=== PATIENT | male | born 1975 | race Two or more races ===

== ENCOUNTER 2019-04-07 09:55 | Day surgery (SDC) | payer OTHER ==
[~2019-04-07 09:55] MED LIST: LIDOCAINE 2% INJ-PF (20 MG/ML) 10 ML AMPUL ONE; PROPOFOL INJ 200 MG/20 ML VIAL IV ONE
--- NOTE | 2019-04-07 11:33 | Operative Report ---
Operative Report DATE OF SURGERY: 04/07/19 Operative Report: The risks benefits and alternatives of the procedure explained to the patient in detail and informed consent is obtained.A GIF Olympus video scope was inserted into the patient's mouth and hypopharynx ,the esophagus is identified intubated and insufflated ,the scope was then advanced through the esophagus stomach and duodenum, retroflexion maneuver is done ,the esophagus stomach and first and second portions of the duodenum examined. PREOPERATIVE DIAGNOSIS: Dyspepsia, abdominal pain. Patient with a previous history of H. pylori that was treated twice in the past POSTOPERATIVE DIAGNOSIS: Esophagitis versus Collins's status post biopsy. Gastritis status post biopsy to rule out for recurrent Helicobacter pylori. Duodenitis OPERATION: EGD with biopsy SURGEON: WENDI BAINS ANESTHESIA: LMAC TISSUE REMOVED OR ALTERED: As noted above. COMPLICATIONS: None. ESTIMATED BLOOD LOSS: None. INTRAOPERATIVE FINDINGS: As noted above. PROCEDURE: Patient tolerated the procedure well. No immediate postprocedure complications are noted. Patient is discharged in good condition. Discharge date 04/07/2019. Discharge diet: Regular. Discharge activity: Regular. 2 to 3-week follow-up to discuss findings. Patient is instructed to call the office or proceed to the emergency room should there be any further problems or questions. Wait on the pathology.
[2019-04-07 11:37] VITALS: BP 128/87
== END 2019-04-07 11:30 | disposition home or self-care (01) ==
LOC: END 09:55
PROVIDERS: ATTEND Internal Medicine Gastroenterology
DX: K29.80 Duodenitis without bleeding (principal); K29.50 Unspecified chronic gastritis without bleeding; K20.9 Esophagitis, unspecified; I10 Essential (primary) hypertension; Z79.899 Other long term (current) drug therapy
CPT/HCPCS: 43239; 88305 ×2; 00731; J2704; J3490; 731